=== PATIENT | female | born 1985 | race Caucasian/White ===

== ENCOUNTER → 2016-12-03 | Outpatient (CLI) | payer OTHER | LOC: M LAB 06:46 | PROVIDERS: ATTEND Obstetrics & Gynecology Reproductive Endocrinology | DX: Z32.00 Encounter for pregnancy test, result unknown (principal) ==

== ENCOUNTER → 2016-12-20 | Outpatient (REF) | payer OTHER | LOC: M SFHCLERA 11:43 | PROVIDERS: ATTEND Family Medicine | DX: E01.0 Iodine-deficiency related diffuse (endemic) goiter (principal); J02.9 Acute pharyngitis, unspecified ==

== ENCOUNTER → 2018-04-23 | Outpatient (REF) | payer OTHER | LOC: M SFHCLERA 16:46 | DX: G43.909 Migraine, unspecified, not intractable, without status migrainosus (principal) ==

== ENCOUNTER → 2018-04-24 | Outpatient (REF) | payer OTHER ==
[2018-04-24 11:21] LABS: HEMATOCRIT 40.1 % (36.0-47.0); MEAN CORPUSCULAR HEMOGLOBIN 29.6 pg (27.0-33.0); MEAN CORPUSCULAR HGB CONC 32.4 g/dl (32.0-36.5); MEAN CORPUSCULAR VOLUME 91.3 fl (80.0-96.0); PLATELET COUNT, AUTOMATED 170 10^3/uL (150-450); RED BLOOD COUNT 4.39 10^6/uL (4.00-5.40); RED CELL DISTRIBUTION WIDTH 12.3 % (11.5-14.5); WHITE BLOOD COUNT 4.2 10^3/uL (4.0-10.0)
[2018-04-24 12:14] LABS: VITAMIN B12 LEVEL 679 PG/ML (247-911)
[2018-04-24 12:18] LABS: ALBUMIN 3.9 GM/DL (3.2-5.2); ALKALINE PHOSPHATASE 44 U/L (45-117); ALT/SGPT 25 U/L (12-78); ANION GAP 7 MEQ/L (8-16); AST/SGOT 15 U/L (7-37); BILIRUBIN,TOTAL 0.7 MG/DL (0.2-1.0); BLOOD UREA NITROGEN 11 MG/DL (7-18); CALCIUM LEVEL 8.5 MG/DL (8.5-10.1); CARBON DIOXIDE LEVEL 24 MEQ/L (21-32); CHLORIDE LEVEL 110 MEQ/L (98-107); CREATININE FOR GFR 0.85 MG/DL (0.55-1.30); GLOMERULAR FILTRATION RATE > 60.0 (>60); GLUCOSE, FASTING 104 MG/DL (70-100); HCG, SERUM QUANTITATIVE < 1.0 MIU/ML; MAGNESIUM LEVEL 2.1 MG/DL (1.8-2.4); SODIUM LEVEL 141 MEQ/L (136-145); TOTAL PROTEIN 6.9 GM/DL (6.4-8.2)
== END ==
LOC: M SFHCLERA 07:58
DX: G43.909 Migraine, unspecified, not intractable, without status migrainosus (principal)
CPT/HCPCS: 83735

== ENCOUNTER → 2019-01-21 | Outpatient (REF) | payer OTHER | LOC: M SFHCLERA 15:19 | PROVIDERS: ATTEND Family Medicine | DX: G62.89 Other specified polyneuropathies (principal) ==

== ENCOUNTER → 2019-02-18 | Outpatient (REF) | payer OTHER | LOC: M SFHCLERA 09:51 | PROVIDERS: ATTEND Family Medicine | DX: D22.5 Melanocytic nevi of trunk (principal) ==

== ENCOUNTER → 2020-01-10 | Outpatient (REF) | payer OTHER ==
[2020-01-10 20:26] LABS: HEMATOCRIT 35.8 % (36.0-47.0); HEMOGLOBIN 12.3 g/dl (12.0-15.5); MEAN CORPUSCULAR HEMOGLOBIN 30.8 pg (27.0-33.0); MEAN CORPUSCULAR HGB CONC 34.4 g/dl (32.0-36.5); MEAN CORPUSCULAR VOLUME 89.5 fl (80.0-96.0); PLATELET COUNT, AUTOMATED 247 10^3/uL (150-450)
[2020-01-10 22:09] LABS: CHLAMYDIA DNA AMPLIFICATION NEGATIVE (NEGATIVE); GC DNA AMPLIFICATION NEGATIVE (NEGATIVE)
[2020-01-12 11:50] LABS: HEPATITIS B SURFACE ANTIGEN NEGATIVE (NEGATIVE); HEPATITIS C VIRUS ABY INDEX < 0.0 INDEX (<0.8); HIV 1&2 SCREEN CENTAUR NEGATIVE (NEGATIVE); RUBELLA IgG QUALITATIVE IMMUNE (IMMUNE)
== END ==
LOC: M PLALAB 15:19
PROVIDERS: ATTEND Advanced Practice Midwife
DX: Z33.1 Pregnant state, incidental (principal)

== ENCOUNTER → 2020-03-13 | Outpatient (REF) | payer OTHER | LOC: M LAB REF 16:54 | PROVIDERS: ATTEND Physician Assistant | DX: H10.89 Other conjunctivitis (principal) ==

== ENCOUNTER → 2020-03-13 | Outpatient (CLI) | payer OTHER ==
--- NOTE | 2020-03-14 07:54 | REP ---
Clinical: Anatomical evaluation. Comparison: 12/13/2019. Findings: Examination demonstrates a single live intrauterine in breech presentation. motion is identified by technologist. Placenta is noted anterior and grade I without evidence for placenta previa or abruption. Amniotic fluid volume is normal. Cervix measures 3.2 cm in length and appears closed. No evidence for nuchal cord. Gestational age by current measurements 21 weeks 1 day with MITCHELL 07/23/2020 . FHR equals 134 beats per minute. BPD 4.9 cm 20 weeks 5 days HC 19.3 cm 21 weeks 4 days AC 16.6 cm 21 weeks 4 days FL 3.6 cm 21 weeks 2 days HL 3.4 cm 21 weeks 4 days HC/AC ratio 1.16 Estimated weight 426 grams ( 55th percentile). Anatomical assessment demonstrates normal structures including cranium, choroid plexus, cavum, cerebellum/posterior fossa, facial features, lungs, four-chamber heart/ventricular outflow tracts, diaphragm, stomach, cord insertion/three-vessel cord, kidneys/bladder, spine, and extremities. Impression: 1. Single live intrauterine in breech presentation demonstrating appropriate estimated weight. 2. Anatomical assessment is complete and normal.
== END ==
LOC: M WHC 13:03
PROVIDERS: ATTEND Nurse Practitioner Women's Health
DX: Z36.89 Encounter for other specified antenatal screening (principal); H10.89 Other conjunctivitis; Z3A.21 21 weeks gestation of pregnancy

== ENCOUNTER → 2020-04-27 | Outpatient (REF) | payer OTHER ==
[2020-04-27 15:15] LABS: HEMATOCRIT 34.9 % (36.0-47.0); HEMOGLOBIN 11.7 g/dl (12.0-15.5); MEAN CORPUSCULAR HEMOGLOBIN 30.5 pg (27.0-33.0); MEAN CORPUSCULAR HGB CONC 33.5 g/dl (32.0-36.5); MEAN CORPUSCULAR VOLUME 91.1 fl (80.0-96.0); PLATELET COUNT, AUTOMATED 256 10^3/uL (150-450); RED BLOOD COUNT 3.83 10^6/uL (4.00-5.40); WHITE BLOOD COUNT 9.5 10^3/uL (4.0-10.0)
== END ==
LOC: M PLALAB 12:53
PROVIDERS: ATTEND Nurse Practitioner Women's Health
DX: Z3A.23 23 weeks gestation of pregnancy (principal)
CPT/HCPCS: 36415; 82950; 85027; 86850; 86900; 86901; G0463; J2790